=== PATIENT | male | born 2000 | race African-American/Black ===

== ENCOUNTER 2025-10-17 01:20 | Emergency (ER) | payer OTHER ==
[~2025-10-17] VITALS: Ht 182.9 cm; Wt 72.0 kg
[2025-10-17 01:55] VITALS: O2SAT 100
[2025-10-17] MEDS ORDERED: NEOM28.43 TP (04:07)
[2025-10-17 04:14] VITALS: BP 120/64; PULSE 72; RESP 18; TEMP 36.7; O2SAT 99
== END 2025-10-17 04:15 | disposition home or self-care (01) ==
LOC: ER 01:20
DX: S61.319A Laceration without foreign body of unspecified finger with damage to nail, initial encounter (principal); W23.0XXA Caught, crushed, jammed, or pinched between moving objects, initial encounter; Y93.89 Activity, other specified; Y92.89 Other specified places as the place of occurrence of the external cause; Y99.8 Other external cause status
CPT/HCPCS: 73140; 99283